=== PATIENT | male | born 1965 | race Caucasian/White ===

== ENCOUNTER 2016-05-06 20:18 | Observation (INO) | payer MEDICAID ==
[~2016-05-06] VITALS: Ht 175.3 cm; Wt 84.9 kg
[2016-05-06] MEDS ORDERED: DILAUDID 1 MG/ML AMP ONE ×2 (22:09→23:21)
[2016-05-06] MEDS ORDERED: SODIUM CHLORIDE 0.9% 1,000 ML ONE (22:09)
[2016-05-06] MEDS ORDERED: BISACODYL EC 5 MG TAB PO PRN (22:15)
[2016-05-06] MEDS ORDERED: ALU/MAG/SIM 30 ML UDC PO PRN (22:15)
[2016-05-06] MEDS ORDERED: ACETAMINOPHEN 325 MG TAB PO PRN (22:15)
[2016-05-06] MEDS ORDERED: BISACODYL 10 MG SUPP RECTAL PRN (22:15)
[2016-05-06] MEDS ORDERED: MAG HYDROX 30 ML UDC PO PRN (22:15)
[2016-05-06] MEDS ORDERED: LORAZEPAM 2 MG/ML VIAL IV PRN (22:15)
[2016-05-06] MEDS ORDERED: ONDANSETRON 4 MG VIAL IV PRN (22:15)
[2016-05-07] VITALS (11 sets, daily range): BP systolic 111–121; RESP 12–20; TEMP 97.5–99; Ht 175.3 cm; Wt 84.9 kg
[2016-05-07] MEDS: NEB-XOPENEX 1.25 MG/3 ML INH SCH ×4 (00:50→19:34)
[2016-05-07] MEDS: SODIUM CHLORIDE 0.9% 1,000 ML IV SCH ×3 (01:06→22:44)
[2016-05-07] MEDS: DILAUDID 1 MG/ML AMP IV PRN ×5 (01:07→18:41)
[2016-05-07] MEDS: PIPERACIL/TAZO 3.375GM/50ML 50 ML IV SCH ×4 (02:11→18:17)
[2016-05-07] MEDS: SODIUM CHLORIDE 0.9% FLUSH BAG 500 ML IV SCH (06:00)
[2016-05-07] MEDS: SALINE FLUSH 10 ML FLUSH SCH ×2 (08:59→20:00)
[2016-05-07] MEDS: OXYCODONE/APAP 7.5/325 TAB PO PRN ×3 (11:45→21:00)
[2016-05-08] VITALS (7 sets, daily range): BP systolic 98–126; RESP 16–20; TEMP 97–99.1
[2016-05-08] MEDS: NEB-XOPENEX 1.25 MG/3 ML INH SCH ×4 (00:20→20:41)
[2016-05-08] MEDS: DILAUDID 1 MG/ML AMP IV PRN ×4 (00:33→19:44)
[2016-05-08] MEDS: PIPERACIL/TAZO 3.375GM/50ML 50 ML IV SCH ×4 (00:34→17:47)
[2016-05-08] MEDS: SODIUM CHLORIDE 0.9% FLUSH BAG 500 ML IV SCH (05:37)
[2016-05-08] MEDS: SALINE FLUSH 10 ML FLUSH SCH ×2 (08:00→21:17)
[2016-05-08] MEDS: OXYCODONE/APAP 7.5/325 TAB PO PRN ×3 (08:02→21:17)
[2016-05-08] MEDS: SODIUM CHLORIDE 0.9% 1,000 ML IV SCH (09:25)
[2016-05-08] MEDS: SALINE FLUSH 10 ML FLUSH PRN ×2 (12:01→17:47)
[2016-05-08] MEDS: LEVETIRACETAM 500 MG TAB PO SCH ×2 (12:02→21:16)
[2016-05-08] MEDS ORDERED: MISSING DOSE XX ONE (17:40)
[2016-05-08] MEDS: [UNRECOGNIZED DRUG - OTHER] RECTAL PRN (18:10)
[2016-05-09] MEDS: NEB-XOPENEX 1.25 MG/3 ML INH SCH ×3 (00:09→12:00)
[2016-05-09] MEDS: PIPERACIL/TAZO 3.375GM/50ML 50 ML IV SCH ×3 (01:03→11:10)
[2016-05-09] MEDS: DILAUDID 1 MG/ML AMP IV PRN ×3 (02:45→15:01)
[2016-05-09 03:23] VITALS: BP_SYST 112; TEMP 97.4
[2016-05-09] MEDS: OXYCODONE/APAP 7.5/325 TAB PO PRN ×2 (04:03→11:10)
[2016-05-09] MEDS: SODIUM CHLORIDE 0.9% FLUSH BAG 500 ML IV SCH (06:21)
[2016-05-09] MEDS: [UNRECOGNIZED DRUG - OTHER] RECTAL PRN (06:45)
[2016-05-09 07:08] VITALS: BP_SYST 99; RESP 18; TEMP 98.4
[2016-05-09] MEDS: LEVETIRACETAM 500 MG TAB PO SCH (08:03)
[2016-05-09] MEDS: SALINE FLUSH 10 ML FLUSH SCH (08:03)
[2016-05-09 08:23] VITALS: BP_SYST 110
[2016-05-09 11:32] VITALS: BP_SYST 104; RESP 20; TEMP 98.3
[2016-05-09] MEDS: SALINE FLUSH 10 ML FLUSH PRN (15:00)
[2016-05-09 15:49] VITALS: BP_SYST 104; RESP 20; TEMP 98.3
[2016-05-09 16:10] VITALS: BP_SYST 113; RESP 20; TEMP 98.2
== END 2016-05-09 08:59 | disposition home or self-care (01) ==
LOC: ENRESERVTM → ENRESERV → ENRESERVDT → ER 20:18 → EMR 22:11 → ENPENDDIS 22:11 → 3NT 05-07 00:17
PROVIDERS: ADMIT Internal Medicine; ATTEND Internal Medicine
DX: K91.872 Postprocedural seroma of a digestive system organ or structure following a digestive system procedure (principal); F41.9 Anxiety disorder, unspecified; F32.9 Major depressive disorder, single episode, unspecified; F17.210 Nicotine dependence, cigarettes, uncomplicated; Z71.6 Tobacco abuse counseling; J44.9 Chronic obstructive pulmonary disease, unspecified; E78.00 Pure hypercholesterolemia, unspecified
CPT/HCPCS: 80048; 85025; 94640; 94799; 96361; 96374; 96375; 96376; 99223; 99232; 99233; 99238